=== PATIENT | female | born 1965 | race Caucasian/White ===

== ENCOUNTER 2017-06-10 16:42 | Inpatient (IN) | payer MEDICARE, MEDICAID ==
[2017-06-10] MEDS ORDERED: HALOPERIDOL 5 MG TABLET PO PRN (21:15)
[2017-06-10] MEDS ORDERED: ZOLPIDEM TARTRATE 10 MG TABLET PO PRN (21:15)
[2017-06-10 21:32] VITALS: BP 124/73
[2017-06-10] MEDS ORDERED: LORazepam 2 MG/ML VIAL ONE (21:49)
[2017-06-10 22:00] VITALS: BP 132/88
[2017-06-10] MEDS ORDERED: DiphenhydrAMINE HCL 50 MG/ML VIAL IM ONE (22:00)
[2017-06-10] MEDS ORDERED: PNEUMOCOCCAL VACCINE POLYVALENT 0.5 ML VIAL [PPSV23] IM ONE (22:00)
[2017-06-10] MEDS ORDERED: HALOPERIDOL LACTATE 5 MG/ML VIAL IM ONE (22:00)
[2017-06-10] MEDS ORDERED: LORazepam 2 MG/ML VIAL IM ONE (22:00)
[2017-06-10 22:02] VITALS: BP 132/88
[2017-06-10 22:39] VITALS: BP 104/60
[2017-06-10 23:02] VITALS: BP 104/60
[2017-06-11] VITALS (10 sets, daily range): BP systolic 107–127; BP diastolic 59–78
[2017-06-11 09:02] LABS: BASOPHILS % (AUTO) 0.1 % (0.0-2.0); EOSINOPHILS % (AUTO) 2.8 % (1.0-6.0); HEMATOCRIT 35.5 % (36-46); LYMPHOCYTES # (AUTO) 0.7 K/uL (1.0-4.8); LYMPHOCYTES % (AUTO) 9.7 % (22.0-44.0); MEAN CORPUSCULAR HEMOGLOBIN 31.3 pg (26.0-34.0); MEAN CORPUSCULAR HGB CONC 33.8 G/dL (31.0-37.0); MEAN CORPUSCULAR VOLUME 92 fL (80-100); MONOCYTES # (AUTO) 0.3 K/uL (0.1-1.0); MONOCYTES % (AUTO) 4.6 % (2.0-9.0); NEUTROPHILS # (AUTO) 6.1 K/uL (1.8-7.7); NEUTROPHILS % (AUTO) 82.8 % (40.0-70.0); PLATELET COUNT (AUTO) 259 K/uL (150-450); RED BLOOD CELL COUNT(AUTO) 3.84 MIL/uL (4.00-5.20)
[2017-06-11 09:10] LABS: HEMOGLOBIN A1C 5.8 % (4.5-6.2)
[2017-06-11 10:44] LABS: AMPHET/METH SCREEN,URINE POSITIVE (NEGATIVE); BARBITURATE SCREEN, URINE NEGATIVE (NEGATIVE); BENZODIAZEPINES SCREEN,URINE NEGATIVE (NEGATIVE); CANNABINOID SCREEN,URINE POSITIVE (NEGATIVE); COCAINE SCREEN,URINE NEGATIVE (NEGATIVE); METHADONE SCREEN, URINE NEGATIVE (NEGATIVE); OPIATE SCREEN,URINE POSITIVE (NEGATIVE)
[2017-06-11 10:45] LABS: PHENCYCLIDINE SCREEN,URINE NEGATIVE (NEGATIVE)
[2017-06-11 10:53] LABS: BILIRUBIN,URINE NEGATIVE (NEGATIVE); GLUCOSE, URINE (UA) NEGATIVE (NEGATIVE); KETONES,URINE NEGATIVE (NEGATIVE); LEUKOCYTE ESTERASE ,URINE SMALL (NEGATIVE); NITRATE,URINE NEGATIVE (NEGATIVE); OCCULT BLOOD,URINE NEGATIVE (NEGATIVE); PH,URINE 6.5 (5.0-8.0); PROTEIN,URINE NEGATIVE (NEGATIVE); UROBILINOGEN,URINE 0.2 mg/dL (<=1.0)
[2017-06-11 11:16] LABS: APPEARANCE,URINE SLIGHTLY CLOUDY (CLEAR)
[2017-06-11 11:17] LABS: BACTERIA,URINE None Seen /HPF (None Seen); RBC,URINE 0-2 /HPF (0-2); SQUAMOUS EPITHELIAL CELL,UR Moderate /LPF (None Seen)
[2017-06-11 12:24] LABS: ALANINE AMINOTRANSFERASE 35 U/L (12-78); ALBUMIN 3.1 g/dL (3.4-5.0); ALKALINE PHOSPHATASE 69 U/L (46-116); ANION GAP 5 mmol/L (8-16); ASPARTATE AMINOTRANSFERASE 25 U/L (15-37); BILIRUBIN,TOTAL 0.4 mg/dL (0.1-1.0); CARBON DIOXIDE 28 mmol/L (22-29); CHLORIDE 109 mmol/L (98-107); CHOLESTEROL 141 mg/dL (131-200); CREATININE 0.76 mg/dL (0.60-1.30); FREE T4 (FREE THYROXINE) 0.86 ng/dL (0.76-1.46); GLOMERULAR FILTR. RATE CALC > 60 mL/min (>60); GLUCOSE,RANDOM 100 mg/dL (70-110); HDL CHOLESTEROL 72 mg/dL (40-60); LDL CHOL (CALC.) 61 mg/dL (0-130); POTASSIUM 3.8 mmol/L (3.5-5.1); SODIUM SERUM 142 mmol/L (136-145); THYROID STIMULATING HORMONE 0.92 uIU/mL (0.36-3.74); TOTAL PROTEIN, SERUM 6.4 g/dL (6.4-8.2); TRIGLYCERIDES 38 mg/dL (15-150); UREA NITROGEN, BLOOD 12 mg/dL (7-18)
[2017-06-11] MEDS ORDERED: ACETAMINOPHEN 325 MG TABLET PO PRN (20:00)
[2017-06-12 02:00] VITALS: BP 112/93
[2017-06-12 08:00] VITALS: BP 102/62
[2017-06-12] MEDS: CIPROFLOXACIN HCL 250 MG TABLET PO SCH ×2 (08:07→16:47)
[2017-06-12] MEDS: VENLAFAXINE HCL 75 MG ER CAPSULE PO SCH (08:07)
[2017-06-12 08:41] LABS: HEMOGLOBIN A1C 5.7 % (4.5-6.2)
[2017-06-12 08:44] VITALS: BP 102/62
[2017-06-12 09:37] LABS: THYROID STIMULATING HORMONE 0.32 uIU/mL (0.36-3.74)
[2017-06-12] MEDS ORDERED: LOPERAMIDE HCL 2 MG CAPSULE PO PRN (10:45)
[2017-06-12] MEDS: LORazepam 2 MG TABLET PO PRN (14:18)
[2017-06-12 16:49] VITALS: BP 120/75
[2017-06-13 00:22] VITALS: BP 115/85
[2017-06-13 06:39] VITALS: BP 112/69
[2017-06-13 08:35] VITALS: BP 135/66
[2017-06-13] MEDS: CIPROFLOXACIN HCL 250 MG TABLET PO SCH ×2 (08:57→16:51)
[2017-06-13] MEDS: VENLAFAXINE HCL 75 MG ER CAPSULE PO SCH (08:58)
[2017-06-13 09:00] VITALS: BP 135/66
[2017-06-13] MEDS: IBUPROFEN 400 MG TABLET PO PRN (13:00)
[2017-06-13] MEDS: LORazepam 2 MG TABLET PO PRN (14:54)
[2017-06-13 16:21] VITALS: BP 104/60
[2017-06-13] MEDS ORDERED: GABAPENTIN 300 MG CAPSULE PO SCH (21:00)
[2017-06-14 04:40] VITALS: BP 135/66
[2017-06-14 04:44] VITALS: BP 135/60
[2017-06-14] MEDS: IBUPROFEN 400 MG TABLET PO PRN (05:18)
[2017-06-14] MEDS: LORazepam 2 MG TABLET PO PRN (05:18)
[2017-06-14 08:00] VITALS: BP 90/69
[2017-06-14] MEDS: CIPROFLOXACIN HCL 250 MG TABLET PO SCH ×2 (08:03→16:14)
[2017-06-14] MEDS: VENLAFAXINE HCL 75 MG ER CAPSULE PO SCH (08:03)
[2017-06-14 08:13] VITALS: BP 90/69
[2017-06-14] MEDS ORDERED: OLAN10TA22 PO (15:18)
[2017-06-14] MEDS ORDERED: VENL75CA55 PO (15:18)
[2017-06-14] MEDS ORDERED: GABA-531 PO (15:18)
[2017-06-14] MEDS ORDERED: NALT50TA PO (15:23)
[2017-06-14 16:00] VITALS: BP 101/64
[2017-06-14] MEDS ORDERED: CIP250 PO (16:32)
[2017-06-14] MEDS ORDERED: OLANZapine 10 MG TABLET PO SCH (21:00)
[2017-06-15] MEDS ORDERED: NALTREXONE HCL 50 MG TABLET PO SCH (09:00)
== END 2017-06-14 17:00 | disposition home or self-care (01) | DRG 885 ==
LOC: B3A 20:30
PROVIDERS: ADMIT Psychiatry & Neurology Psychiatry; ATTEND Psychiatry & Neurology Psychiatry
DX: F33.3 Major depressive disorder, recurrent, severe with psychotic symptoms (principal); R45.851 Suicidal ideations; E83.51 Hypocalcemia; F19.20 Other psychoactive substance dependence, uncomplicated; N39.0 Urinary tract infection, site not specified; F41.9 Anxiety disorder, unspecified; M54.9 Dorsalgia, unspecified; F17.210 Nicotine dependence, cigarettes, uncomplicated; F15.90 Other stimulant use, unspecified, uncomplicated; F12.90 Cannabis use, unspecified, uncomplicated; F11.90 Opioid use, unspecified, uncomplicated; D64.9 Anemia, unspecified; G62.9 Polyneuropathy, unspecified; Z59.0 Homelessness; Z88.5 Allergy status to narcotic agent; Z88.8 Allergy status to other drugs, medicaments and biological substances; Z79.899 Other long term (current) drug therapy; Z28.21 Immunization not carried out because of patient refusal
CPT/HCPCS: 80307; 83036; 84439; 84443; 87081; J1200; J1630; J2060